=== PATIENT | female | born 1985 | race African-American/Black ===

== ENCOUNTER 2019-05-27 15:04 | Emergency (ER) | payer OTHER ==
[~2019-05-27] VITALS: Ht 165.1 cm; Wt 151.5 kg
[2019-05-27] MEDS ORDERED: PROAIR HFA8.5 GM INH (22:27)
[2019-05-27] MEDS ORDERED: TAMIFLU75 MG PO (22:27)
[2019-05-27] MEDS ORDERED: PROMETH-CODEIN 65 ML PO (22:27)
[2019-05-27 23:00] VITALS: BP 116/71
== END 2019-05-27 23:00 | disposition home or self-care (01) ==
LOC: ER 15:04
DX: J11.1 Influenza due to unidentified influenza virus with other respiratory manifestations (principal); R11.10 Vomiting, unspecified; I10 Essential (primary) hypertension; E11.9 Type 2 diabetes mellitus without complications; E78.00 Pure hypercholesterolemia, unspecified; E78.5 Hyperlipidemia, unspecified; F17.210 Nicotine dependence, cigarettes, uncomplicated; Z88.1 Allergy status to other antibiotic agents